=== PATIENT | female | born 1990 | race Caucasian/White ===

== ENCOUNTER 2017-07-06 12:38 | Outpatient (CLI) | payer OTHER ==
--- NOTE | 2017-07-06 14:41 | MRI ---
MRI BRAIN NONCONTRAST: DATE: 07/06/17. HISTORY: A 27-year-old female: G43.909, migraine headache R51, worsening headaches G93.5, Chiari malformation type I. COMPARISON: None. FINDINGS: The right cerebellar tonsil protrudes inferior to the foramen magnum a distance of 10 mm, and is asso ciated with a slight kink at the cervicomedullary junction, with mild distortion of the right posteri or aspect of the medulla. The contralateral left cerebellar tonsil protrudes a distance of only appr oximately 5 mm inferior to the foramen magnum. The ventricles are normal in size and configuration. There is no restricted diffusion, intraaxial si gnal abnormality of any type, or evidence of recent or remote intraaxial hemorrhage. No mass effect, midline shift, or extraaxial fluid collection. No signal abnormality identified in the paranasal si nuses or bilateral tympanomastoid cavities. Flow voids are grossly maintained in the major arteries of the [place]. IMPRESSION: 1. Mild Chiari I malformation consisting of unilateral ectopia of right cerebellar tonsil. 2. The rest of the brain is normal. JOSE Delgadillo POS: CLAUDIO
== END 2017-07-06 12:39 | disposition home or self-care (01) ==
LOC: TBSIIMAG 12:38
PROVIDERS: ATTEND Student in an Organized Health Care Education/Training Program
DX: G43.909 Migraine, unspecified, not intractable, without status migrainosus (principal); G93.5 Compression of brain
CPT/HCPCS: 70551

== ENCOUNTER 2018-02-25 05:39 | Emergency (ER) | payer OTHER ==
[2018-02-25 06:06] LABS: #Eosinphils 0.1 thou/uL (0.0-0.7); #Lymphocytes 2.1 thou/uL (1.20-3.40); #Monocytes 0.4 thou/uL (0.11-0.59); #Neutrophils 3.3 thou/uL (1.40-6.50); %Basophils 0.7 % (0.0-1.0); %Eosinophils 1.5 % (0.0-10.0); %Lymphocytes 35.5 % (21.0-51.0); %Monocytes 7.3 % (0.0-10.0); Hemoglobin 12.6 g/dL (12.0-16.0); Mean Corpuscular HGB CONC 30.8 g/dL (32.0-36.0); Mean Corpuscular Hemoglobin 28.7 pg (27.0-31.0); Mean Corpuscular Volume 93.2 fL (78.0-98.0); Mean Platelet Volume 8.8 fL (7.4-10.4); Platelet Count 233 thou/uL (130-400); RBC Distribution Width 12.1 % (11.5-14.5); Red Blood Cell (RBC) Count 4.39 mill/uL (4.20-5.40)
[2018-02-25] MEDS ORDERED: Ondansetron PF 4 MG/2 ML Vial ONE (06:08)
[2018-02-25] MEDS ORDERED: Morphine 4 MG/ML VIAL ONE (06:08)
[2018-02-25 06:18] LABS: ALT (SGPT) 10 U/L (8-55); AST (SGOT) 14 U/L (5-34); Albumin 4.4 g/dL (3.5-5.0); Alkaline Phosphatase 44 U/L (40-150); Anion Gap 11 mmol/L (10-20); BUN (Urea Nitrogen) 12 mg/dL (7.0-18.7); Bilirubin, Total 0.4 mg/dL (0.2-1.2); Calc. Creatinine Clearance 0 mL/min (70-130); Calcium 9.2 mg/dL (7.8-10.44); Carbon Dioxide 20 mmol/L (22-29); Chloride 110 mmol/L (98-107); Estimated GFR-MDRD 68; Globulin 3.3 g/dL (2.4-3.5); Glucose 96 mg/dL (70-105); Lipase 20 U/L (8-78); Protein, Total 7.7 g/dL (6.0-8.3); Sodium 137 mmol/L (136-145)
[2018-02-25 07:37] LABS: Bilirubin Negative (Negative); Blood, Urine Negative (Negative); Clarity CLEAR (Clear); Glucose, Urine (Dipstick) Negative (Negative); Leukocyte Moderate (Negative); Nitrite Negative (Negative); Protein, Urine (Dipstick) Negative (Neg-Trace); Specific Gravity, Urine 1.004 (1.002-1.036); Urobilinogen 0.2 mg/dL (0.2-1.0)
[2018-02-25 07:40] LABS: Bacteria/HPF Rare-Few HPF (None Seen); Hyaline Casts/LPF 0-3 HYALINE CAST LPF (0-3 Hyaline); Pathc Cast-AUWi Flag 0.87 (0-2.49); RBC/HPF 0-3 HPF (0-3)
[2018-02-25 07:42] LABS: Pregnancy Test - Urine (BHCG) Negative (Negative); Pregu Control Background? CLEAR/WHITE (CLR/WHITE); Pregu Control Bar Appear? YES (CONTROL BAR); Specific Gravity 1.004 (1.002-1.036)
--- NOTE | 2018-02-25 08:25 | CT ---
CT ABDOMEN AND PELVIS WITH IV CONTRAST: Date: 02/25/18 HISTORY: Right lower quadrant pain, nausea. FINDINGS: The lung bases are clear. There are a few tiny low density lesions in the liver, too small to charact erize. The spleen, pancreas, adrenal glands, and left kidney are normal. There is suggestion of a cys t in the right kidney. No free air is seen. There is a small amount of free fluid in the pelvis. Uter us is present. There is a 6.3 cm cystic mass in the right ovary. No calcified gallstones are seen. Th e appendix is normal. IMPRESSION: 1. No evidence of appendicitis. 2. Tiny amount of free fluid in the pelvis with a 6.3 cm right ovarian cystic mass. Evaluation with pelvic ultrasound would be helpful. POS: CLAUDIO
== END 2018-02-25 10:00 | disposition home or self-care (01) ==
LOC: ERS 05:39
DX: N83.201 Unspecified ovarian cyst, right side (principal); N39.0 Urinary tract infection, site not specified; G43.909 Migraine, unspecified, not intractable, without status migrainosus; Z79.899 Other long term (current) drug therapy
CPT/HCPCS: 36415; 74177; 80053; 81003; 81015; 81025; 83690; 85025; 96361; 96374; 96375; J2270; J2405